=== PATIENT | female | born 1945 | race Caucasian/White ===

== ENCOUNTER → 2017-01-10 | Outpatient (CLI) | payer OTHER | LOC: RAD 01:21 | DX: Z12.31 Encounter for screening mammogram for malignant neoplasm of breast (principal); M85.89 Other specified disorders of bone density and structure, multiple sites; N91.2 Amenorrhea, unspecified; Z78.0 Asymptomatic menopausal state ==

== ENCOUNTER 2019-03-06 21:33 | Inpatient (IN) | payer OTHER ==
[~2019-03-06] VITALS: Ht 160 cm; Wt 64.4 kg
[2019-03-06 21:35] VITALS: BP 126/53
[2019-03-06] MEDS ORDERED: ZYPREXA 10 MG T10 MG PO (21:41)
[2019-03-06] MEDS ORDERED: THIORIDAZINE HC50 M2 PO (21:42)
[2019-03-06] MEDS ORDERED: LAMICTAL100 MG PO (21:42)
[2019-03-06] MEDS ORDERED: SYNTHROID88 MC1 PO (21:43)
[2019-03-06 22:29] LABS: HEMATOCRIT 27.2 % (37.0-47.0); HEMOGLOBIN 9.2 gm/dL (12.0-15.0); MCH 28.1 pg (26.0-34.0); MCHC 33.8 g/dL (28.0-37.0); MCV 83.3 fL (80.0-100.0); RBC 3.27 mil/uL (4.20-5.00); RDW 14.2 % (10.5-14.5); WBC 3.9 thou/uL (4.0-11.0)
[2019-03-06 22:35] LABS: CALCIUM 8.9 mg/dL (8.5-10.1); CREATININE 0.8 mg/dL (0.6-1.0); MAGNESIUM 1.6 mg/dL (1.8-2.4); POTASSIUM 4.3 mmol/L (3.5-5.1)
[2019-03-06 23:24] VITALS: BP 131/50
[2019-03-06 23:31] LABS: URINE BILIRUBIN NEGATIVE (Negative); URINE BLOOD NEGATIVE (Negative); URINE CLARITY CLEAR; URINE COLOR YELLOW; URINE GLUCOSE-RANDOM* NEGATIVE (Negative); URINE KETONES NEGATIVE (Negative); URINE LEUKOCYTES-REFLEX NEGATIVE (Negative); URINE NITRITE-REFLEX NEGATIVE (Negative); URINE PROTEIN (DIPSTICK) NEGATIVE (Negative); URINE SPECIFIC GRAVITY <= 1.005 (1.005-1.035); URINE UROBILINOGEN 0.2 E.U./dl (0.2-1.0)
[2019-03-07] VITALS (7 sets, daily range): BP systolic 94–131; BP diastolic 45–57
[2019-03-07 05:18] LABS: CALCIUM 8.6 mg/dL (8.5-10.1); CREATININE 0.8 mg/dL (0.6-1.0); POTASSIUM 4.1 mmol/L (3.5-5.1)
--- NOTE | 2019-03-07 06:14 | NUR ---
PT CAME FROM ER AROUND 0000 THIS SHIFT. PT IS ORIENTED TO PERSON PLACE AND SITUATION ONLY. PT HAS A FLAT AFFECT SOMETIMES, CAREGIVER/BROTHER WAS IN THE ROOM DURING PT'S ADMISSION AND HE IS HERE NOW. PT'S Na CAME UP THIS MORNING TO 120 FROM 116. PT HAD GOOD URINE OUTPUT THIS SHIFT. PT IS UP X1 TO THE BEDSIDE COMMODE. PT APPEARS STEADY. NO COMPLAINTS OF PAIN OR DISCOMFORT, WILL CONTINUE TO MONITOR PER POC.
--- NOTE | 2019-03-07 09:58 | NUR ---
RD consult received for unintentional wt loss about 10 lb however has regained most back. Hx bipolar, schizophrenia, developmental delay. Brother is caregiver. Visit this am, good appetite. Pt and brother provided detailed list of food preferences and aware of need for fluid restricted diet due to hyponatremia. Low nutrition risk
--- NOTE | 2019-03-07 10:44 | NUR ---
Case opened to follow for dc planning. Panel Monitor visited with the pt and her brother/dpoa Ranjit at bedside. The pt is able to answer basic questions. She lives with her brother and his Lynn. They are her caregivers and she has lived with them for 2years since the passing of their father. The pt is from [place]. A copy of the pt's medical dpoa is on the chart. Her brother Ranjit is the primary agent and contact and his the alternate. The pt has 5 steps with two landings to enter their home and no steps once inside. She does not use any DME but occasional sba when going out to appointments. Th pt's pcp is Dr. Lurdes Butcher. The pt has a complex mental health history with schizo/bipolar/OCD/and developmental delays. Pt admitted with low sodium and her brother notes she has had a couple of falls recently when up during the night to the bathroom. She has had hh in the recent past through [facility] but is currently going to outpt therapy at [facility]. She had a shoulder replacement a few months ago. Therapy evals ordered. They are hoping she can return home with outpt therapy but are open to any recommendations per the care team. Cm role introduced. A copy of the dpoa document was placed on the chart.
--- NOTE | 2019-03-07 18:01 | NUR ---
ASSESSMENT CHARTED. PT ALERT AND ORIENTED TO SELF AND SITUATION. PLEASANT AND COOPERATIVE WITH CARES. SEEN BY DR. PALACIO. NEW ORDERS NOTED. FAMILY UPDATED ON PT'S PROGRESS. WILL CONTINUE TO MONITOR.
[2019-03-08 04:02] VITALS: BP 103/47
--- NOTE | 2019-03-08 04:58 | NUR ---
ASSESSMENT DOCUMENTED.PT BEEN RESTING IN NO ACUTE DISTRESS.A/OX3.VSS.RA W/O RESP DISTRESS.NSR ON MONITOR.UP WITH SBA TO BR.PT DENIES ANY DISTRESS AT THIS TIME.WILL CONT TO MONITOR PER POC.
[2019-03-08 06:05] LABS: ALBUMIN 3.1 g/dL (3.4-5.0); CALCIUM 8.6 mg/dL (8.5-10.1); CREATININE 0.8 mg/dL (0.6-1.0); PHOSPHORUS 3.8 mg/dL (2.5-4.9); POTASSIUM 4.6 mmol/L (3.5-5.1)
[2019-03-08 07:15] VITALS: BP 105/70
--- NOTE | 2019-03-08 11:14 | NUR ---
ASSESSMENT CHARTED PT ALERT AND ORIENTED TO SELF AND THE SITUATION. DENIED HAVING PAIN OR DISCOMFORT. VSS. SEEN BY DR. ROSARIO. ORDERS GIVEN TO TRANSFER PT TO 440. REPORT CALLED IN TO [facility]. FAMILY NOTIFIED. WILL CONTINUE TO MONITOR.
[2019-03-08 11:30] VITALS: BP 101/48
--- NOTE | 2019-03-08 13:41 | NUR ---
Pt transfering to med surg bed on 4S today. Pt's brother here and aware. Pt is doing better. Psych recommendations noted. Sodium improved. Likely dc to home tomorrow with her brother. He will let her homemaker per mo medicaid know and he will continue taking her to outpt therapy. No cm interventions indicated.
[2019-03-08 16:05] VITALS: BP 118/47
--- NOTE | 2019-03-08 16:07 | NUR ---
FAXED REFERRAL TO [facility] RECEIVED CONFIRMATION AND LEFT MSG WITH INTAKE THAT PT POSS WILL NEED LYMPHEDEMA THERAPY WILL F/U WITH THEM IN THE MORNING.
--- NOTE | 2019-03-08 16:52 | NUR ---
PT RECIEVED FROM CCU TO 440 AT 1115 THIS AM. PT'S BROTHER AND NATURAL FABRICATOR AT THE BEDSIDE. PT CALM AND COOPERATIVE. DR. PALACIO IN AROUND 1500 TO SEE PT AND DISCUSSED PLAN OF CARE W/ PT AND BROTHER. PROBABLE DISCHARGE TOMORROW AND WILL F/U W/ HER PSYCHRIATRIST AT [facility].
[2019-03-08 20:00] VITALS: BP 101/45
--- NOTE | 2019-03-09 03:48 | NUR ---
ASSUMED CARE OF PT @1900 PT ASSESSED AT START OF SHIFT DENIES PAIN. UP WITH ASSISTX1 TO THE BATHROOM. ON A 1500ML FLUID RESTRICTION FOR 24HR. IV INTACT IN RT ARM. FALL PREC IN PLACE AND CALL LIGHT WITHIN REACH WILL CONT WITH POC TILL EOS.
[2019-03-09 05:31] LABS: ALBUMIN 3.2 g/dL (3.4-5.0); CALCIUM 8.5 mg/dL (8.5-10.1); CREATININE 0.8 mg/dL (0.6-1.0); PHOSPHORUS 3.5 mg/dL (2.5-4.9); POTASSIUM 4.4 mmol/L (3.5-5.1)
[2019-03-09 07:50] VITALS: BP 102/52
--- NOTE | 2019-03-09 12:20 | NUR ---
FAXED DR. PALACIO'S CONSULT AND PROG. NOTES TO [facility] OFFICE RECEIVED CONFIRMATION. DP TO FOLLOW.
--- NOTE | 2019-03-09 15:24 | NUR ---
CARE TEAM INDICATED THAT THEY ANTICPATED THAT PT WILL ABLE TO DC HOME TOMORROW WITH HER BROTHER WITH FOLLOW UP CARES AT [facility] THAT BROTHER IS CAPABLE TO REINITIATE, AND LIKELY OP THERAPY. SHOULD IT BE DETERMINED THAT PT NEEDS HOME HEALTH THEY WOULD LIKE TO USE [facility] PHONE: FAX:
--- NOTE | 2019-03-09 18:35 | NUR ---
ASSUMED CARE OF THE PT AT 0700. PT IS VERY ANXIOUS AND CRIES ALOT SAYING "I MISS MY MOM". CALLED DOCTOR AND PT HAS ANXIETY MEDICATION, SEE EMAR. PT HAD A BM TODAY. PT WAS UP AD DAVID IN THE ROOM WITH GAIT BELT ON. PT COMPLAINED THAT SHE DID NOT GET ANY SLEEP LAST NIGHT. FALL PRECAUTIONS IN PLACE, BED IN LOWEST POSITION AND CALL LIGHT IS WITHIN REACH. WILL CONTINUE TO MONITOR THE PT.
[2019-03-09 20:30] VITALS: BP 114/61
[2019-03-10 03:45] VITALS: BP 106/57
[2019-03-10 05:26] LABS: ALBUMIN 3.1 g/dL (3.4-5.0); CALCIUM 8.7 mg/dL (8.5-10.1); CREATININE 0.8 mg/dL (0.6-1.0); PHOSPHORUS 3.8 mg/dL (2.5-4.9); POTASSIUM 4.5 mmol/L (3.5-5.1); SGOT 12 U/L (15-37); SGPT 13 U/L (30-65)
--- NOTE | 2019-03-10 08:06 | NUR ---
PATIENT ALERT AND ORIENTED [place], PLACE AND SITUATION. ON 1500 FLUID RESTRICTION. PATIENT UP WITH ASSISTANCE. PATIENT SLEPT OFF AND ON DURING THE NIGHT. DENIES PAIN.
[2019-03-10 08:35] VITALS: BP 120/60
[2019-03-10] MEDS ORDERED: CHLORPROMAZINE25 M3 PO (10:22)
[2019-03-10] MEDS ORDERED: HOME MEDICATION PO (10:23)
[2019-03-10] MEDS ORDERED: MIRALAX17 GM PO (10:23)
[2019-03-10] MEDS ORDERED: SODIUM CHLORIDE1 GM PO (10:24)
[2019-03-10 11:35] VITALS: BP 120/60
--- NOTE | 2019-03-10 14:10 | NUR ---
LATES ENTRY: PATIENT DISCHARGED HOME WITH BROTHER. EDUCATED ON NEED TO LIMIT FLUIDS TO 1.5L/DAY. SHE WAS ALSO INSTRUCTED TO F/U WITH DR LERMA IN TWO WEEKS. PATIENT WILL CONT WITH NACL TO KEEP SODIUM STABLE.
--- NOTE | 2019-03-13 09:44 | HC ---
[facility] [place] [address] CONSULTATION Name: TAJGUILHERMEQUITA Room #: 440-P [facility] IN M.R.#: [id number] Admission: 03/06/19 Attend Phys: Jean Jacob Discharge: 03/10/19 Date of : 45 Report #: [id number] THIS REPORT FOR: //name// CC: Jean Varela REASON FOR CONSULTATION: Hyponatremia. REASON FOR PRESENTATION: Abnormal laboratory values, repeated falls. HISTORY OF PRESENT ILLNESS: This is obtained from the patient's brother. She has a developmental delay. She is not able to provide me with details of the history of present illness. She is a 73-year-old with history of schizophrenia, obsessive compulsive disorder, and bipolar disorder. She is also known to have hypothyroidism. She has had repeated falls since this past weekend. She also has not been stable and steady. No seizure activities. She visited with her primary care physician, who did some labs on her and then called her yesterday that her sodium was extremely low at 116. Brother reported to me that she had another event of hyponatremia 15 years ago and was attributed to polydipsia. No other neurological symptoms. PAST MEDICAL HISTORY: 1. Paranoid schizophrenia. 2. Bipolar disorder. 3. Hypothyroidism. 4. Developmental delay. 5. Shoulder surgery in the past. SOCIAL HISTORY: She lives with her brother. No drug or alcohol abuse. MEDICATIONS: 1. Levothyroxine. 2. Lamictal. 3. Zyprexa. 4. Thioridazine. REVIEW OF SYSTEMS: Per the brother. GENERAL: Significant for weakness and lethargy. CARDIOVASCULAR: No chest pain or palpitation. PULMONARY: No cough or hemoptysis. GASTROINTESTINAL: No nausea or vomiting. GENITOURINARY: No frequency. No urgency. MUSCULOSKELETAL: Occasional back pain. NEUROLOGICAL: As per the history of present illness. ALLERGIES: SEROQUEL and DEPAKOTE. [facility] [address] [place] [address] CONSULTATION Name: QUITA BROWN Precious Room #: 440-[facility] IN [facility].#: [id number] Admission: 03/06/19 Attend Phys: Jean Jacob Discharge: 03/10/19 Date of : 45 Report #: [id number] PHYSICAL EXAMINATION: GENERAL: She is alert. Pulse rate is 63 and blood pressure is 111/45. HEAD AND NECK: No jugular venous distention. CHEST: No crackles. CARDIOVASCULAR: No rub. ABDOMEN: Soft and nontender. LOWER EXTREMITIES: No edema. LABORATORY DATA: Reviewed. Sodium was 116 yesterday and is up to 120 today. Potassium is 4.1, BUN is 10, and creatinine is 0.8. UA with a very dilute urine with specific gravity less than 1.005. IMPRESSION AND PLAN: 1. Hyponatremia due to psychogenic polydipsia. 2. Continue with the fluid restriction for now, sodium is appropriately rising up. No neurological symptoms to justify the usage of 3% saline. 3. Defer the management of her psych medication to the hospitalist team, consult psychiatric, communicate with her psychiatrist regarding medications that might not induce SIADH like picture in this patient with hyponatremia. <ELECTRONICALLY SIGNED> By: Sadaf Singh MD 03/13/19 0944 [id number] Sadaf Singh MD /nt
== END 2019-03-10 13:38 | disposition home or self-care (01) | DRG 641 ==
LOC: ER 21:33 → 4S 23:07 → 2N 23:07 → EROBS 23:07 → 2N 03-07 00:05 → ENTRNSPT 03-08 11:02 → EDTRNSPTSTS 03-08 11:05 → 4S 03-08 11:12
PROVIDERS: Emergency Medicine Emergency Medical Services; Hospitalist; Nurse Practitioner Family; Psychiatry & Neurology Psychiatry; ADMIT Hospitalist
DX: E87.1 Hypo-osmolality and hyponatremia (principal); F20.0 Paranoid schizophrenia; T42.6X5A Adverse effect of other antiepileptic and sedative-hypnotic drugs, initial encounter; R63.1 Polydipsia; E03.9 Hypothyroidism, unspecified; D64.9 Anemia, unspecified; F31.9 Bipolar disorder, unspecified; Z96.619 Presence of unspecified artificial shoulder joint; F42.9 Obsessive-compulsive disorder, unspecified; G47.00 Insomnia, unspecified; Y92.89 Other specified places as the place of occurrence of the external cause; Z88.8 Allergy status to other drugs, medicaments and biological substances; Z79.899 Other long term (current) drug therapy
CPT/HCPCS: 10081; 10102

== ENCOUNTER 2019-04-06 08:07 | Inpatient (IN) | payer OTHER ==
[~2019-04-06] VITALS: Ht 160 cm; Wt 58.3 kg
[2019-04-06 08:07] VITALS: BP 141/60
[~2019-04-06 08:07] MED LIST: CHLORPROMAZINE25 M3 PO; HOME MEDICATION PO; LAMICTAL100 MG PO; MIRALAX17 GM PO; SODIUM CHLORIDE1 GM PO; SYNTHROID88 MC1 PO; THIORIDAZINE HC50 M2 PO; ZYPREXA 10 MG T10 MG PO
[2019-04-06] MEDS ORDERED: TRAZODONE 150150 M1 PO (08:44)
[2019-04-06] MEDS ORDERED: RISPERDAL2 MG PO (08:45)
[2019-04-06] MEDS ORDERED: B12INJ IM (08:46)
[2019-04-06 09:21] LABS: ABSOLUTE NEUTROPHILS 2.2 thou/uL (1.4-8.2); BASOPHILS 0.2 % (0.0-2.0); HEMATOCRIT 29.6 % (37.0-47.0); HEMOGLOBIN 9.8 gm/dL (12.0-15.0); LYMPHOCYTES 29.8 % (24.0-44.0); MCH 28.1 pg (26.0-34.0); MCHC 33.2 g/dL (28.0-37.0); MCV 84.5 fL (80.0-100.0); PLATELET COUNT 398 thou/uL (150-400); RDW 14.3 % (10.5-14.5); WBC 3.5 thou/uL (4.0-11.0)
[2019-04-06 09:24] LABS: CREATININE 0.9 mg/dL (0.6-1.0); POTASSIUM 3.4 mmol/L (3.5-5.1)
[2019-04-06 09:30] LABS: ALBUMIN 3.7 g/dL (3.4-5.0); TOTAL PROTEIN 7.1 g/dL (6.4-8.2)
[2019-04-06 12:31] LABS: DIRECT BILIRUBIN 0.2 mg/dL (<0.1-0.2)
[2019-04-06 13:42] VITALS: BP 130/67
[2019-04-06 14:10] VITALS: BP 125/69
[2019-04-06 15:18] VITALS: BP 1446/60
--- NOTE | 2019-04-06 15:58 | NUR ---
pt. arrived in w/c accompanied by brother and er transporter. PT. IS PLEASANT AND COOPERATIVE WITH QUESTIONS. BROTHER ANSWERED MOST QUESTIONS. SHE HAS A PAST HISTORY OF SXHIZOEFFECTIVE DISORDER, DEPRESSION, PARANOIA, AND OCD. . HER PMHX ENCLUDE APPENDECTOMY WHICH RESULTED IN SHORTENED INTESTINE WHICH RESULTED IN CHRONIC DIARRHEA (THIS OCCURRED IN THE 1959'S), SHE HAD A RIGHT TOTAL HIP REPLACEMENT ABOUT 6 YEARS AGO, A RT. TOTAL SHOULDER REPLACEMENT ABOUT 4 MONTHS AGO, AND BROTHER REPORTED SHE NEEDS TO HAVE HER LEFT SHOULDER REPLACED NEXT YEAR. SHE IS ON A BLAND DIET DUE TO THE BOWEL PROBLEMS SHE HAS. HER BROTHER, GABRIEL, IS HER DPOA. SHE LIVES WITH HER BROTHER AND HIS . HE STATES SHE STARTED HAVEING PROBLEMS BECAUSE OF A DISCONTINUATION IN NORMAL PSYCH MEDICATIONS DUE TO SODIUM IMBALANCE. SHE IS LABILE AND SHE RANTS WHEN UPSET. PT. DOES NOT HAVE A HISTORY OF SI, ETOH ABUSE, DRUG ABUSE. SHE DOES HAVE A FULL SET OF DENTURES (SHE IS WEARING THEM CURRENTLY), READING GLASSES BUT NO HEARING AIDES. REVIEWED HER MEDICATIONS AND ENTERED THEM IN THE COMPUTER. REPORTS SHE IS NOT ABLE TO SHOWER HERSELF OR DO ADL'S HERSELF.
[2019-04-06 20:12] VITALS: BP 107/62
--- NOTE | 2019-04-07 03:25 | NUR ---
ASSUMED CARE OF PT AT 1900HRS. PT IS AD DAVID WITH A STEADY GAIT. PT WAS PLEASANT AND CHATTY AT THE TIME OF ASSESSMENT. HOWEVER, THE NIGHT PROGRESSED, PT WOKE UP AND CAME TO THE HALLWAY CRYING. SIGNS OF PARANOIA WAS EVIDENT. PT WAS EASILY REASSURED AND REDIRECTED TO BED. PT WAS ABLE TO SLEEP FOR A FEW HOURS THIS SHIFT. VSS AND NO S/S OF ACUTE DISTRESS. WILL CONTINUE TO MONITOR.
[2019-04-07 04:49] LABS: CALCIUM 8.4 mg/dL (8.5-10.1); CREATININE 0.7 mg/dL (0.6-1.0); POTASSIUM 3.5 mmol/L (3.5-5.1)
[2019-04-07 07:50] VITALS: BP 133/56
--- NOTE | 2019-04-07 15:16 | NUR ---
Has been up in dayroom most of shift, she is very labile in mood, mary beth quickly and then will laugh right after, she deines SI/HI and AVH, she eats fair, have encouraged fluids and requested her to let us know if she has to urinate as we need a UA, she said she would let us know. She takes medications without issues, family was present for visitation and questions were answered. She is receiving FS due to hypoglycemia and to monitor for further acion per Dr. Chang. Continue to monitor for safety and behaviors.
[2019-04-07 20:00] VITALS: BP 120/50
--- NOTE | 2019-04-08 05:17 | NUR ---
1909-Report received from day shift nurse and care assumed. She talked with tangential thinking and disorganized thinking. She was socialable with her roomate, staying in her room during the evening. She was talkative, med. compliant and blood sugar = 113. She rested for a whilr then at 0045 she was in her room crying tears, talking loudly. She was talked with in the day room and she was looking for her brother she said, she was comforted and talked with staff also. She had a sad affect, but not crying, and talked further and was laughing soon. She had insomnia and was anxious still and the Dr. was called and ordered Ativan 1 mg. po and Haldol 5 mg. po x 1 now, which was given at 0140. It was effective as she was became more rested and went to her room. She slept lightly the remainder of the nite.
[2019-04-08 07:46] VITALS: BP 135/64
[2019-04-08 08:40] VITALS: BP 135/64
--- NOTE | 2019-04-08 08:40 | NUR ---
PT SITTING AT DINING ROOM TABLE. PT IN W/C WITH YELLOW SHIRT. PT STATED SHE FELT TIRED THIS AM. PT GOT 4 HRS OF SLEEP LAST NIGHT. PT SUPERVISOR DRYING AND WINDING EQUAL BILATERAL. PT ABLE TO FEED SELF. PT SOFT SPOKEN AND SLOW.
[2019-04-08 19:53] VITALS: BP 156/78
[2019-04-08 19:54] LABS: URINE BILIRUBIN NEGATIVE (Negative); URINE BLOOD NEGATIVE (Negative); URINE CLARITY CLEAR; URINE COLOR YELLOW; URINE GLUCOSE-RANDOM* NEGATIVE (Negative); URINE KETONES 1+ (Negative); URINE LEUKOCYTES-REFLEX NEGATIVE (Negative); URINE NITRITE-REFLEX NEGATIVE (Negative); URINE PROTEIN (DIPSTICK) NEGATIVE (Negative); URINE SPECIFIC GRAVITY 1.025 (1.005-1.035); URINE UROBILINOGEN 0.2 E.U./dl (0.2-1.0)
[2019-04-09 05:28] LABS: CALCIUM 8.7 mg/dL (8.5-10.1); CREATININE 0.7 mg/dL (0.6-1.0); POTASSIUM 3.9 mmol/L (3.5-5.1)
--- NOTE | 2019-04-09 05:51 | NUR ---
1909-Report received from day shift nurse. She was medication compliant, talkative with no c.o. voiced at [employer]. She was incontinent/continent of bowel in the nite, loose/yellowish/odorous with undigested food small amount. This upset her, she began crying "bowel movement" she said. Then she began saying the name of her brothers cat repeatedly while crying, which lasted for several minutes which was a loud calling out the cats name as staff tried consoling her crying. She began cursing loudly when she was assisted to the day room to rest/talk/sit. This was directed towards unseen others with the cat's name/sobbing. She said "I love you" to staff as well during this time. This crying, hallucinations continued, no further bowel movements and no c.o. pain also. was called and ordered Ativan 1 mg. po and it was given at 0145 for anxiety/insomnia and it was effective somewhat she returned to sleeping in her bed. She is smiling and saying I love you this morning. total hours of sleep = 3.8.
[2019-04-09 08:03] VITALS: BP 137/65
--- NOTE | 2019-04-09 13:04 | NUR ---
Nutrition: Assessed due to consult for "on bland diet due to GI issues." Met w/ pt and 2 family members before lunch. Family denies any major nutrition or weight loss concerns. Family states "diet/food here has been perfect for her." They report a surgery a long time ago "messed up her GI system." Avoids oil, no ice in beverages. Likes bananas, cranberry juice, cream of wheat, waffles, pancakes, peaches, applesauce, cottage cheese, mashed potatoes w/ no butter/gravy. At recorded weight near 129#, pt at a very healthy wt. BMI 22.8 kg/m2. It appears pt could have possibly lost 13# as documented wt during Nov admit was 142#, but family didn't mention any wt changes. Will notify kitchen of food preferences and meal add-ons. Otherwise, low nutrition risk.
--- NOTE | 2019-04-09 13:51 | NUR ---
Alert and cooperative/compliant with care. Oriented to person and place but not time. Ambulates without difficulty. Denies SI/HI. Talks about family members and then random topics. Breath sounds clear t/o, bilaterally equal. Reg HR auscultated. Color pale pink with brisk capillary refill and palpable peripheral pulses. Active bowel sounds over soft, flat abdomen. Brief dry.
--- NOTE | 2019-04-09 14:50 | NUR ---
KELLIE met with pt's brother and SO t discuss medicaitons and d/c plans. It was established through a meds review and medication HX that Dr Chang will make meds changes and remove wheelchair. Kellie also asked for the PCP and Caregivers[facility] and numbers at [facility], brother will provide that through email. Pt receives 08/11 care in their home and will d/c back there later this week , if she responds favorably to the interventions.
--- NOTE | 2019-04-09 15:54 | EKG ---
[address] [address] ELECTROCARDIOGRAM REPORT Name: QUITA BROWN Room #: [facility]-A ADM IN ..#: [id number] Admission: 04/06/19 Attend Phys: Elmer Chang DO Discharge: Date of : 45 Report #: [id number] THIS REPORT FOR: //name// [facility] Test Date: 2019-04-06 Test Time: 15:01:22 Pat Name: QUITA BROWN Department: Room: [facility] Gender: F Fish Packer: GABY : 1945 Requested By: Elmer Chang Order Number: [id number] MD: Daniel Samayoa Measurements Intervals [place] Rate: 72 P: 65 MA: 181 QRS: 33 QRSD: 87 T: 35 QT: 390 QTc: 427 Interpretive Statements Sinus rhythm No previous ECG available for comparison Electronically Signed On 04-09-2019 15:53:43 TRADE CLERK by Daniel Samayoa [email or web address] <ELECTRONICALLY SIGNED> By: Daniel Samayoa MD 04/09/19 1553 1501 1501 MD NIDIA Mchugh
[2019-04-09 20:26] VITALS: BP 156/80
--- NOTE | 2019-04-10 01:58 | NUR ---
Assessments completed. pt a&ox3. pt had an xlg loose BM which smelled like c.diff. stool collected and sent to lab for testing. pt kept talking about his tall brother over and over again stating he is over 6ft tall. v/s stable. no s/s of distress. pt has been sleeping with no complaints. will cont to monitor
[2019-04-10 11:50] VITALS: BP 137/61; BP 137/81
--- NOTE | 2019-04-10 12:12 | NUR ---
0700 REPORT RECEIVED FROM OVERNIGHT SHIFT, I HELPED PATIENT DO HYGEINE THIS AM. PATIENT DID NOT EAT BUT ABOUT 25% OF BREAKFAST, PATIENT WAS VERY TEARFUL FOR SEVERAL HOURS. I ASKED DR GREGORY IF WE COULD GIVE PATIENT SOMETHING, HE TOLD TO WAIT TO SEE IF HALDOL SHE TOOK AT 0900 WOULD KICK IN. PATIENT DID STOP CRYING, HAD VISIT FROM SON AND [id number]. PATIENT'S SON TOLD ME HIS MOM WAS TELLING HIM THAT SHE WAS SEING THINGS AND DID NOT FEEL LIKE HERSELF. NAOMIE THE CHARGE NURSE HEARD FAMILY ASKING PATIENT QUESTIONS ABOUT SEEING AND HEARING THINGS. PATIENT DID NOT REPORT THIS THINGS TO ME. SON ASKED IF WE HAD A STOCK PILE OF MELLIRAL WHICH HE SAID HELPED HIS MOTHER IN THE PAST. I LOOKED UP THE MEDICATION AND IT IS NOT MANUFACTURED ANYMORE. PATIENT TALKED WITH DR GREGORY AND THE DR ORDERED BMP,CBC FOR PATIENT TO SEE IF LABS ARE OKAY. A C-DIFF IS PENDING DUE TO LOOSE STOOLS AND FOUL SMELLING, TEST IS PENDING. PATIENT THREW UP AT LUNCH TIME AND DID NOT EAT LUNCH, WE LET PATIENT LIE DOWN TO REST. WE WILL CONTIUNE TO MONITOR PATIENT FOR SAFETY AND BEHAVIOR CHANGES. TOLD SON SHE WAS SEEING THINGS AND SHE DID NOT FEEL LIKE HERSELF. SHE FELT NAUSOUS SO WE GAVE PATIENT CRACKERS AND VARINDER JANAE. PATIENT'S SON WANTED TO KNOW IF WE COULD
[2019-04-10 12:39] LABS: CALCIUM 8.7 mg/dL (8.5-10.1); CREATININE 0.7 mg/dL (0.6-1.0); POTASSIUM 3.9 mmol/L (3.5-5.1)
[2019-04-10] MEDS ORDERED: HALOPERIDOL 5 MG5 MG PO (13:07)
[2019-04-10 16:06] VITALS: BP 112/54
--- NOTE | 2019-04-11 09:33 | H ---
[facility] [place] [address] HISTORY AND PHYSICAL Name: QUITA BROWN Room #: 361-P [facility] IN M.R.#: [id number] Admission: 04/06/19 Attend Phys: Elmer Chang DO Discharge: 04/10/19 Date of : 45 Report #: [id number] THIS REPORT FOR: //name// CC: Elmer Chang Lurdes Varela DATE OF SERVICE: 04/06/2019 INPATIENT PSYCHIATRIC EVALUATION ATTENDING PHYSICIAN: Elmer Chang DO. MFT: Jean Jacob MD REASON FOR ADMISSION: Insomnia, shaun, delusional and disorganized thinking. HISTORY OF PRESENT ILLNESS: This is a 73-year-old female well known to the Hospitalist Service, but not to oh, [facility]. She was most recently admitted around 03/06/2019, so a month ago. At that time, she was on Dr. Jacob's service and had an electrolyte imbalance. The patient at present had been brought to [facility]. She had a fall last night, fell on her right side. Denies head injury. Her brother contacted PCP, who recommended she be seen for repeat labs. As stated, the patient was admitted for hyponatremia about a month ago. Thorazine was discontinued at that time. The patient currently takes levothyroxine, risperidone, trazodone daily. Labs drawn on 03/22/2019, had normal sodium, but low hemoglobin. The patient has a history of schizoaffective disorder, Alzheimer's disease. Her brother does not believe her new medication regimen is effective. The patient has significant mood swings 2 nights ago. Her brother contacted her psychiatrist, who rediscovered and recommended to increase her trazodone dosage. Trazodone was increased both yesterday and the day before. It should be noted brother reported to me she slept 4 hours last night with him sleeping on the floor because of her fall risk. PAST SURGICAL HISTORY: Includes right shoulder replacement 4 months ago and hip replacement 5 years ago, shoulder replacement 10/2018. Apparently, the patient was sent from Dr. Varela's office for sodium level to be checked. PAST MEDICAL HISTORY: Hypothyroidism, chronic diarrhea. 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 CURRENT HOME MEDICATIONS: Lamotrigine 200 mg p.o. at bedtime, levothyroxine 88 mcg p.o. daily, trazodone 150 mg p.o. at bedtime, risperidone [address] [place] [address] HISTORY AND PHYSICAL Name: TAJGUILHERMEQUITA Room #: 361-P [facility] IN M.R.#: [id number] Admission: 04/06/19 Attend Phys: Elmer Chang DO Discharge: 04/10/19 Date of : 45 Report #: [id number] vitamin B12 at 1000 mcg IM weekly. ALLERGIES: Noted to be DEPAKOTE, GI issues. SEROQUEL GI issues. SOCIAL HISTORY: Denied alcohol use history, currently nonsmoker. REVIEW OF SYSTEMS: CONSTITUTIONAL: Negative for chills and fever. HEENT: Negative for ear pain and hearing loss. RESPIRATORY: Negative for cough. CARDIOVASCULAR: Negative for chest pain. GASTROINTESTINAL: Negative for abdominal pain, nausea and vomiting. GENITOURINARY: Negative for dysuria. MUSCULOSKELETAL: Negative for back pain, myalgias, neck pain. SKIN: Negative for rash. NEUROLOGICAL: Negative for headaches. VITAL SIGNS: Today, O2 sat 100%, BP 141/60, temperature 36.3, pulse 85, respirations 20, weight 63.5 kilos. LABORATORY DATA: From the ER, sodium low at 124, potassium 3.4, chloride 92, bicarbonate 24, anion gap 8, BUN 11, creatinine 0.9, estimated GFR 61, glucose 92, calcium 9.0, total bilirubin 1.0, direct bilirubin 0.2, AST 20, ALT 23, alkaline phosphatase 157, total protein 7.1, albumin 3.71. Hematology: White count 3.5, H and H 10.8 and 29.6, platelet count 398. IMAGING: No head imaging available. Abdominal x-ray last February. Physical exam, abnormal gait, off balance. MENTAL STATUS EXAMINATION: This is a well-developed, disheveled female appearing older than stated age. Attention limited. Concentration limited. Speech slowed. Thought process linear and limited. Thought content, poverty of thought. No psychomotor retardation. No psychomotor agitation. Denied SI, HI. Denied hopelessness, helplessness. Memory not formally tested, but suspect to be impaired. Insight limited. Judgment impaired. Fund of knowledge well below average. FORMULATION: A 73-year-old female living with brother, brought by her brother due to increased confusion and disorganization. DIAGNOSES: At this time, schizoaffective disorder, currently decompensated. PLAN: Evaluate, stabilize, obtain collateral. Regarding medications, continue levothyroxine 88 mcg p.o. daily, trazodone 50 mg p.o. at bedtime, lamotrigine 200 mg p.o. at bedtime, start Haldol 2 mg p.o. b.i.d. at 9:00 a.m. and 9:00 p.m. Continue house PRNs. [facility] [address] [place] [address] HISTORY AND PHYSICAL Name: QUITA BROWN Room #: 361-P [facility] IN M.R.#: [id number] Admission: 04/06/19 Attend Phys: Elmer Chang DO Discharge: 04/10/19 Date of : 45 Report #: [id number] ESTIMATED LENGTH OF STAY: 10-14 days. STRENGTHS: Insured, supportive family. WEAKNESSES: Advancing age, longstanding mental illness. <ELECTRONICALLY SIGNED> By: Elmer Chang DO 04/11/19 0933 1559 1647 Elmer Chang DO /nt
--- NOTE | 2019-04-13 14:27 | D ---
[facility] [place] [address] DISCHARGE SUMMARY Name: QUITA BROWN Room #: 361-P [facility] IN M.R.#: [id number] Admission: 04/06/19 Attend Phys: Elmer Chang DO Discharge: 04/10/19 Date of : 45 Report #: [id number] THIS REPORT FOR: //name// CC: Elmer Chang Lurdes Varela DATE OF SERVICE: 04/10/2019 INPATIENT PSYCHIATRIC DISCHARGE SUMMARY ATTENDING PHYSICIAN: Elmer Chang DO. TEACHER EMOTIONALLY IMPAIRED AT THE TIME OF DISCHARGE: Jean Jacob MD DISCHARGE DIAGNOSES: Delirium secondary to general medical condition, namely critically low hyponatremia and Clostridium difficile infection. 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 Additionally, in much to my surprise, the patient had a positive Clostridium difficile stool result just before her sodium level returned as well as presumptive Clostridium difficile infection. The patient was emergently transferred to the med tele floor at [facility]. DIET: Per hospitalist service. DISCHARGE MEDICATIONS: Include Haldol 5 mg p.o. twice per day for psychosis, lamotrigine 200 mg p.o. at bedtime for mood stabilization, levothyroxine 88 mcg p.o. daily, vitamin B12 at 1000 mcg IM weekly. Additional discharge planning will be per the medical floor. REASON FOR ADMISSION: Back on 04/06/2019 is as follows. Apparently, the patient had significant mood swings, lives with her brother and [id number]. HOSPITAL COURSE: The patient was admitted to Geriatric Psychiatry Unit. The patient's sodium level initially improved from 124 to 127 and went down to 122. Trazodone was discontinued after that and family visited the patient, was noticeably more confused to them, so I did a stat BMP on day of discharge, which resulted in the 115 sodium level. Also apparently, the night hospitalist nurse practitioner ordered to the Clostridium difficile by PCR, not exactly sure why this patient has well established chronic diarrhea; however, it resulted in a positive value of likely necessitate treatment given in the hospital setting. CONDITION AT DISCHARGE: Medically unstable. [facility] [address] [place] [address] DISCHARGE SUMMARY Name: QUITA BROWN Precious Room #: 361-P [facility] IN [facility].#: [id number] Admission: 04/06/19 Attend Phys: Elmer Chang, Discharge: 04/10/19 Date of : 45 Report #: [id number] Other laboratories, of note, white count on admission 3.5, H and H 9.8 and 29.6. Electrolyte issues have already been reviewed. Urinalysis showed 1+ ketones. Urine osmolality was performed on 04/08/2019 and as stated on 04/10/2019, positive C. diff resulted from sample obtained on 04/09/2019. PHYSICAL EXAMINATION: VITAL SIGNS: At time of discharge, temperature 36.3, pulse 66, respirations 18, BP 137/61, O2 sat 96%. GENERAL: A well-developed, disheveled, seated in wheelchair. MENTAL STATUS EXAMINATION: This is a well-developed, disheveled female appearing at least stated age. Attention and concentration, both impaired. Speech variably spontaneous. Mood and affect congruent, constricted, labile, crying appropriately at times. Some psychomotor agitation. No psychomotor retardation. Actually really unable to test for SI or HI due to her level of confusion. Memory not formally tested. Insight impaired. Judgment impaired. Fund of knowledge well below average. PROGNOSIS: For this patient is guarded. Given age and comorbidities, I will be happy to consult on the patient on the medical floor. We will have to see how she improves. At this time, I am not so sure it would be beneficial for her to be readmitted to Psychiatry given her progress here and family's wishes. <ELECTRONICALLY SIGNED> By: Elmer Chang DO 04/13/19 1427 [id number] Elmer Chang DO /nt
== END 2019-04-10 16:26 | disposition short-term general hospital (02) | DRG 885 ==
LOC: ER 08:07 → SBH 12:34 → EROBS 12:34 → SBH 14:10 → 3W 04-10 14:22
PROVIDERS: Emergency Medicine; Hospitalist; ADMIT Psychiatry & Neurology Psychiatry
DX: F25.9 Schizoaffective disorder, unspecified (principal); E87.1 Hypo-osmolality and hyponatremia; F01.50 Vascular dementia, unspecified severity, without behavioral disturbance, psychotic disturbance, mood disturbance, and anxiety; F31.9 Bipolar disorder, unspecified; E03.9 Hypothyroidism, unspecified; R41.0 Disorientation, unspecified; Z96.641 Presence of right artificial hip joint; Z96.611 Presence of right artificial shoulder joint; Z88.8 Allergy status to other drugs, medicaments and biological substances; Z79.899 Other long term (current) drug therapy
CPT/HCPCS: 10880

== ENCOUNTER 2019-04-10 14:15 | Inpatient (IN) | payer OTHER ==
[~2019-04-10 14:15] MED LIST changes: +B12INJ IM; +HALOPERIDOL 5 MG5 MG PO; +RISPERDAL2 MG PO; +TRAZODONE 150150 M1 PO
[2019-04-10 16:01] VITALS: BP 112/54
[2019-04-10 19:28] VITALS: BP 132/61
[2019-04-11 02:40] LABS: URINE BILIRUBIN NEGATIVE (Negative); URINE BLOOD NEGATIVE (Negative); URINE CLARITY CLEAR; URINE COLOR YELLOW; URINE GLUCOSE-RANDOM* NEGATIVE (Negative); URINE KETONES 1+ (Negative); URINE LEUKOCYTES-REFLEX NEGATIVE (Negative); URINE NITRITE-REFLEX NEGATIVE (Negative); URINE PROTEIN (DIPSTICK) NEGATIVE (Negative); URINE UROBILINOGEN 0.2 E.U./dl (0.2-1.0)
[2019-04-11 03:32] VITALS: BP 140/64
[2019-04-11 06:26] LABS: ABSOLUTE NEUTROPHILS 3.5 thou/uL (1.4-8.2); BASOPHILS 0.1 % (0.0-2.0); EOSINOPHILS 0.1 % (0.0-3.0); HEMATOCRIT 27.4 % (37.0-47.0); HEMOGLOBIN 9.3 gm/dL (12.0-15.0); LYMPHOCYTES 18.5 % (24.0-44.0); MCH 28.1 pg (26.0-34.0); MCV 82.8 fL (80.0-100.0); MONOCYTES 5.9 % (1.0-8.0); PLATELET COUNT 384 thou/uL (150-400); POLYS 75.4 % (36.0-66.0); RBC 3.31 mil/uL (4.20-5.00); RDW 13.7 % (10.5-14.5); WBC 4.6 thou/uL (4.0-11.0)
[2019-04-11 06:36] LABS: % SATURATION 21 % (20-39); IRON 54 ug/dL (50-170); TIBC 253 ug/dL (250-450)
[2019-04-11 06:41] LABS: ALBUMIN 3.2 g/dL (3.4-5.0); CREATININE 0.5 mg/dL (0.6-1.0); MAGNESIUM 1.2 mg/dL (1.8-2.4); PHOSPHORUS 2.9 mg/dL (2.5-4.9); POTASSIUM 3.2 mmol/L (3.5-5.1)
[2019-04-11 07:04] LABS: FOLIC ACID 19.5 ng/mL (8.6-58.9)
[2019-04-11 08:21] VITALS: BP 130/70
[2019-04-11 11:19] VITALS: BP 125/66
[2019-04-11 15:28] VITALS: BP 106/50
[2019-04-11 19:52] VITALS: BP 121/70
[2019-04-12 01:30] VITALS: BP 119/59
[2019-04-12 04:44] VITALS: BP 132/63
[2019-04-12 05:52] LABS: CALCIUM 8.3 mg/dL (8.5-10.1); CREATININE 0.6 mg/dL (0.6-1.0)
[2019-04-12 05:59] LABS: POTASSIUM 2.8 mmol/L (3.5-5.1)
[2019-04-12 07:52] VITALS: BP 141/79
[2019-04-12 11:33] VITALS: BP 143/78
[2019-04-12 15:11] LABS: MAGNESIUM 1.2 mg/dL (1.8-2.4); POTASSIUM 3.3 mmol/L (3.5-5.1)
[2019-04-12 16:05] VITALS: BP 127/65
[2019-04-12 19:41] VITALS: BP 124/63
[2019-04-13 04:45] VITALS: BP 118/50
[2019-04-13 07:38] LABS: ALBUMIN 3.1 g/dL (3.4-5.0); CALCIUM 8.6 mg/dL (8.5-10.1); CREATININE 0.6 mg/dL (0.6-1.0); MAGNESIUM 1.8 mg/dL (1.8-2.4); POTASSIUM 3.3 mmol/L (3.5-5.1); TOTAL BILIRUBIN 0.3 mg/dL (<0.1-1.0); TOTAL PROTEIN 5.5 g/dL (6.4-8.2)
[2019-04-13 07:45] VITALS: BP 109/60
[2019-04-13 12:20] VITALS: BP 124/61
[2019-04-13 15:30] VITALS: BP 109/59
[2019-04-13 19:40] VITALS: BP 107/60
[2019-04-14 04:10] VITALS: BP 103/58
[2019-04-14 04:11] LABS: CALCIUM 8.2 mg/dL (8.5-10.1); CREATININE 0.6 mg/dL (0.6-1.0)
[2019-04-14 04:13] LABS: POTASSIUM 2.7 mmol/L (3.5-5.1)
[2019-04-14 07:45] VITALS: BP 124/55
[2019-04-14 11:05] VITALS: BP 112/49
[2019-04-14 15:20] VITALS: BP 128/55
[2019-04-14 20:02] LABS: MAGNESIUM 2.6 mg/dL (1.8-2.4); POTASSIUM 3.7 mmol/L (3.5-5.1)
[2019-04-14 20:17] VITALS: BP 92/50
[2019-04-15 03:07] VITALS: BP 114/61
[2019-04-15 06:43] VITALS: BP 124/65
[2019-04-15 06:48] LABS: ALBUMIN 2.8 g/dL (3.4-5.0); CALCIUM 8.5 mg/dL (8.5-10.1); CREATININE 0.6 mg/dL (0.6-1.0); MAGNESIUM 1.9 mg/dL (1.8-2.4); POTASSIUM 3.9 mmol/L (3.5-5.1); TOTAL BILIRUBIN 0.2 mg/dL (<0.1-1.0); TOTAL PROTEIN 5.7 g/dL (6.4-8.2)
[2019-04-15 11:08] VITALS: BP 102/59
[2019-04-15 16:01] VITALS: BP 102/66
[2019-04-15 20:15] VITALS: BP 107/67
[2019-04-16 04:25] VITALS: BP 103/59
[2019-04-16 07:01] LABS: CALCIUM 8.9 mg/dL (8.5-10.1); CREATININE 0.6 mg/dL (0.6-1.0); POTASSIUM 3.5 mmol/L (3.5-5.1)
[2019-04-16 08:17] VITALS: BP 114/61
[2019-04-16 12:07] VITALS: BP 116/56
--- NOTE | 2019-04-16 12:51 | HC ---
[facility] [place] [address] CONSULTATION Name: QUITA BROWN Precious Room #: 361-P [facility] IN .R.#: [id number] Admission: 04/10/19 Attend Phys: Jean Jacob Discharge: Date of : 45 Report #: [id number] THIS REPORT FOR: //name// CC: Jean Varela DATE OF SERVICE: 04/15/2019 ENDOCRINE CONSULTATION NOTE CONSULTING PHYSICIAN: Jean Jacob M.D. REASON FOR CONSULTATION: Hyponatremia, hypothyroidism. HISTORY OF PRESENT ILLNESS: This is a 73-year-old female patient whose medical background is significant for paranoid schizophrenia, OCD, bipolar disorder as well as hypothyroidism. The patient presented initially to the Emergency Department for the evaluation of abnormal labs and then was later at the Psych Unit. Upon changes of altered mentation, the patient was investigated and found to have a sodium of 115. During my interview with the patient, she acknowledged that she has had hypothyroidism for many years and denied any withholding of levothyroxine for extended periods of time. When asked about whether or not hyponatremia had occurred in the past, she answered yes, but could not give more details on that. The patient notes that she was occasionally dizzy, lightheaded, but denies syncope, loss of consciousness. She believes that she has been weaker and more fatigued. She has occasional nausea, but denies vomiting. There have not been significant changes of weight. Her appetite has been poor. Mood depressed. It is worth noting that the patient is maintained on Lamictal as well as haloperidol. REVIEW OF SYSTEMS: CONSTITUTIONAL: Weakness, tiredness. No fever or chills or changes in body weight. HEENT: Negative for sinus pain, ear drainage. PULMONARY: Occasional shortness of breath, cough, but not hemoptysis. CARDIAC: Negative for chest pain, syncope or presyncope, palpitations. GASTROINTESTINAL: Occasional nausea, abdominal discomfort, but no vomiting or major changes in bowel movement frequency. PSYCH: Depressed mood. No active hallucinations as per the patient. SKIN: Negative for rash, ulceration or itching or other major abnormalities. NEUROLOGY: Negative for loss of consciousness, seizure activity. Noted for progressive generalized weakness. Otherwise, review of systems noncontributory unless mentioned in the HPI. [address] [address] CONSULTATION Name: QUITA BROWN Precious Room #: 361[facility] IN .R.#: [id number] Admission: 04/10/19 Attend Phys: Jean Jacob Discharge: Date of : 45 Report #: [id number] PAST MEDICAL HISTORY: 1. Hypothyroidism. 2. Bipolar disorder. 3. Paranoid schizophrenia. 4. OCD. OUTPATIENT MEDICATIONS: Include Lamictal 200 mg at bedtime, levothyroxine 88 mcg daily, vitamin B12 1000 mcg weekly. PAST SURGICAL HISTORY: Noted for appendectomy and shoulder surgery. ALLERGIES: The patient is allergic to DEPAKOTE and SEROQUEL. SOCIAL HISTORY: The patient denies active use of tobacco, alcohol or illicit drugs. PHYSICAL EXAMINATION: GENERAL: female patient who is not in apparent distress, sitting upright in her bed. VITAL SIGNS: Blood pressure is 102/59 mmHg, heart rate is 83 beats per minute, respirations 20 per minute, temperature is 36.9 degrees. CONSTITUTIONAL: The patient is sitting upright in her bed, appears comfortable, not in apparent distress. HEENT: Anicteric sclerae. Intact extraocular motions. NECK: Supple, without JVD, carotid bruits or lymphadenopathy. I do not appreciate thyromegaly. CHEST: Noted for moderate entry bilaterally with scattered rales. HEART: Regular rate and rhythm without murmurs or gallops. ABDOMEN: Soft and lax. No guarding. No organomegaly. The patient has active bowel sounds. EXTREMITIES: Lower extremity exam is negative for ankle edema, skin breaks, ulcerations or other major abnormalities. NEUROLOGIC: Awake, alert, has an overall nonfocal exam. PSYCHIATRIC: Awake, alert and interactive, answers my questions mostly appropriately, but occasionally making statements that are detached from the context. Flat mood and affect. LABORATORY DATA: Blood glucose values have remained consistently under 100 mg/dL. Sodium started out at 115 on 04/10 and then progressively valerie to 117 then 120, 121, 126, 130. Interestingly, the patient has a baseline as low as 116 in 02/2019, potassium 3.9 and having reviewed her potassium readings for over 40 days, there have been occasions of hypokalemia, but mostly it has been within normal limits. Chloride 98, CO2 26, anion gap 6, BUN 10, creatinine 0.6, serum osmolarity 241, AST 17, total bilirubin 0.2, calcium 8.5, phosphorus 2.9, magnesium 1.9, alkaline phosphatase 119, ALT 17, total protein 5.7, albumin 2.8, [facility] [address] [place] [address] CONSULTATION Name: QUITA BROWN Room #: 361-P [facility] IN M.R.#: [id number] Admission: 04/10/19 Attend Phys: Jean Jacob Discharge: Date of : 45 Report #: [id number] EGFR 98. Ammonia 12, free T4 on 03/06 was 1.3. White blood count 4.6, hemoglobin 9.3, hematocrit 27.4, platelets 384. Urine osmolarity on 04/08 was 704. Urine sodium was 30. ASSESSMENT AND PLAN: 1. Hyponatremia. This is severe and has been somewhat intractable for over a month. The combination of chronic protracted hyponatremia, low serum osmolarity, significantly elevated urine osmolarity, and lack of excessive urine sodium excretion all points out to the notion of syndrome of inappropriate antidiuretic hormone secretion as being the primary etiology for her hyponatremia. Moreover, the patient has done rather well with fluid restriction over the past few days as her sodium progressively valerie to 130, which further supports the notion of syndrome of inappropriate antidiuretic hormone secretion. In this context, psychotropic therapy could certainly in a major way predispose to syndrome of inappropriate antidiuretic hormone secretion, but I would also like to rule out the possibility of adrenal insufficiency with a random cortisol. In the immediate setting, I would support the ongoing measures of fluid restriction and routine sodium monitoring. 2. Hypothyroidism. The patient has chronic hypothyroidism and although she notes compliance with her intended regimen, I believe it is warranted to ensure that there have not been major changes in her thyroid hormone imbalance since it was last looked 6 weeks ago. I will do so by obtaining a TSH and free T4. This is a rather significant and relevant to her current issues of hyponatremia. Further dose adjustments will be made as necessary based on these results. 3. Clostridium difficile colitis. The patient seems to have ongoing issues with Clostridium difficile colitis. She is on contact precautions and is being managed with p.o. vancomycin. 4. Bipolar disorder, schizophrenia. As noted above, it appears that the patient's hyponatremia relates to her chronic therapy with Lamictal. This might very well need to be revised so as to avoid similar occurrences in the future. I would very much advice that her managing psychiatrist manages this therapeutic change to where her psych issues remain under good control while he avoids hyponatremia in the future. I have reviewed pertinent clinical care notes, laboratory data, radiologic data past and present for over 35 minutes. I certainly appreciate this consultation by Dr. Jacob. <ELECTRONICALLY SIGNED> By: Katiuska Casey MD 04/16/19 1251 [id number] Katiuska Casey MD /nt
[2019-04-16 17:41] VITALS: BP 142/70
[2019-04-16 21:06] VITALS: BP 128/69
[2019-04-17 06:39] LABS: ALBUMIN 2.8 g/dL (3.4-5.0); CALCIUM 8.6 mg/dL (8.5-10.1); CREATININE 0.6 mg/dL (0.6-1.0); MAGNESIUM 1.5 mg/dL (1.8-2.4); PHOSPHORUS 3.6 mg/dL (2.5-4.9); POTASSIUM 3.6 mmol/L (3.5-5.1)
[2019-04-17 07:30] VITALS: BP 145/62
[2019-04-17 14:00] VITALS: BP 140/69
[2019-04-17 19:51] VITALS: BP 122/55
[2019-04-18 07:41] LABS: CALCIUM 8.9 mg/dL (8.5-10.1); CREATININE 0.6 mg/dL (0.6-1.0); MAGNESIUM 1.5 mg/dL (1.8-2.4); POTASSIUM 3.5 mmol/L (3.5-5.1)
[2019-04-18 08:00] VITALS: BP 128/60
[2019-04-18 15:00] VITALS: BP 123/69
[2019-04-18 19:39] VITALS: BP 121/63
[2019-04-19 06:05] LABS: CALCIUM 8.6 mg/dL (8.5-10.1); CREATININE 0.7 mg/dL (0.6-1.0); MAGNESIUM 1.6 mg/dL (1.8-2.4); POTASSIUM 3.3 mmol/L (3.5-5.1)
[2019-04-19 08:03] VITALS: BP 150/77
[2019-04-19 14:31] VITALS: BP 129/54
[2019-04-19 18:59] VITALS: BP 156/89
[2019-04-20 05:22] LABS: CREATININE 0.7 mg/dL (0.6-1.0); POTASSIUM 3.6 mmol/L (3.5-5.1)
[2019-04-20 08:00] VITALS: BP 125/75
[2019-04-20 15:00] VITALS: BP 140/61
[2019-04-20 19:04] VITALS: BP 146/72
[2019-04-21 07:10] VITALS: BP 154/72
[2019-04-21] MEDS ORDERED: FLORINEF ACETA0.1 MG PO (14:08)
[2019-04-21] MEDS ORDERED: LAMOTRIGINE150 MG PO (14:08)
[2019-04-21] MEDS ORDERED: FIRVANQ50 MG/1 ML PO (14:10)
[2019-04-21 15:40] VITALS: BP 149/69
== END 2019-04-21 18:20 | disposition short-term general hospital (02) | DRG 643 ==
LOC: 3W 14:15 → 4W 04-16 19:56
PROVIDERS: Nurse Practitioner; Nurse Practitioner Acute Care; ADMIT Hospitalist
PROC: 02HV33Z Insertion of Infusion Device into Superior Vena Cava, Percutaneous Approach (ICD-10-PCS; principal; 2019-04-13)
DX: E22.2 Syndrome of inappropriate secretion of antidiuretic hormone (principal); G93.41 Metabolic encephalopathy; A04.72 Enterocolitis due to Clostridium difficile, not specified as recurrent; F31.9 Bipolar disorder, unspecified; E03.9 Hypothyroidism, unspecified; Z96.641 Presence of right artificial hip joint; Z96.611 Presence of right artificial shoulder joint; R41.0 Disorientation, unspecified; F25.9 Schizoaffective disorder, unspecified; Z79.899 Other long term (current) drug therapy; Z88.8 Allergy status to other drugs, medicaments and biological substances; Z90.49 Acquired absence of other specified parts of digestive tract
CPT/HCPCS: 10047; 10879; 27000

== ENCOUNTER 2019-04-21 19:00 | Inpatient (IN) | payer OTHER ==
[~2019-04-21 19:00] MED LIST changes: +FIRVANQ50 MG/1 ML PO; +FLORINEF ACETA0.1 MG PO; +LAMOTRIGINE150 MG PO
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
[2019-04-22 09:23] VITALS: BP 143/69
--- NOTE | 2019-04-22 12:55 | NUR ---
ASSUMED CARE AT 0715 AM ON04/22/19. PATIENT LYING IN BED AT 0750. PATIENT CLEANED UP DUE TO WATER STOOL NOTED IN BED. DISTINCTIVE ODER NOTED TO STOOL WILL NOTIFY DR. KAUFMAN IN W/C IN ROOM, CALM & COOPERATIVE. PATIENT TOOK MEDS WITHOUT DIFFICULTY. DENIES SI/HI AND AVH. DENIES NEEDS AT THIS TIME
[2019-04-22 20:21] VITALS: BP 101/52
--- NOTE | 2019-04-22 23:25 | NUR ---
ASSUMED CARE ON 04/22/19 @ 19:15, IN ROOM, IN BED. AWAKE AND ORIENTED TO PERSON, CAN REPORT FULL NAME AND , WELL PREFERRED NICKNAME IS BUCK. HER ANSWER TO WHO IS THE PRESIDENT IS NO RESPONSE. WHEN ASKED WHO HER FAVORITE PRESIDENT WAS, SHE ANSWERED LENIN, THEN PAUSED AND SAID THE BEATLE, BEE GEES AND ANCA. SHE CONTINUED IN UNCLEAR SPEACH TALKING ABOUT A CAT. NEW MED ORDERS FOR B-12 1000 MCG X 3 WEEKS THEN CONTINUE MONTHLY. TOOK MEDS WHOLE WITH WATER. C/O RIGHT SHOULDER PAIN, TYLENOL 650 GIVEN PRN, NOTED TO BE SLEEPING UPON REASSESSMENT. TOILETED, VOIDED NOEL COLOR URINE, NO BM OUTPUT NOTED. TOOK VANCOMYCIN ORDERED. BED IN LOW POSIITON, BED ALARM SET, WILL CONTINUE TO MONITOR Q 12 MINUTES FOR PATIENT SAFETY.
[2019-04-23 02:52] VITALS: BP 101/52
--- NOTE | 2019-04-23 06:30 | NUR ---
slept 8.6 hours overnight
[2019-04-23 09:19] VITALS: BP 149/62
--- NOTE | 2019-04-23 11:09 | NUR ---
Nutrition: Pt admitted back to [facility] unit from acute with major severe cognitive disorder, dementia. PMH: bipolar, schizophrenia. Intermittently confused and hallucinating during visit. Son present. Prior need for fluid restriction-SIADH. Prior food preferences will be re-entered. Dysphagia has improved from previous need for pureed with nectar thickened liquids, now on mechanical chopped regular liquids. Appetite has been good and current intake documented as 50-75% of meals. Current weight 121#, possible 8# decline from weight of 129# 2 weeks ago which is close to usual. May be related to hyponatremia/fluid restriction. RD will follow trends closely. Pt would like ensure enlive daily and ensure pudding. Will allow 1 liquid/tray as per previous order. Continue as low nutrition risk for now.
--- NOTE | 2019-04-23 11:17 | NUR ---
ASSUMED CARE AT 0700 THIS MORNING. PT. IN HER ROOM. DURING REPORT THE PUMP TECHNICIAN REPORTED PT. RETURNED FROM THE MEDICAL FLOOR AFTER HAVING C-DIF. PT. ATE BREAKFAST IN HER ROOM DUE TO THIS. HAND HYGIENE FOLLOWED CLOSELY. AT 0930 PT. CARE MEEETING, IT WAS DISCUSSED WITH THE AND ALL STAFF. STATED HE WOULD CHECK INTO THIS AND LET US KNOW. PT. CRIED WHEN MEDICATIONS WAS GIVEN TO HER (CRUSHED AND IN ICE CREAM), HOWEVER, SHE TOOK THE MEDICATIONS WITHOUT PROBLEMS NOTED. THEN STARTED EATING BREAKFAST AND STARTED SMILING AGAIN.
[2019-04-23 14:42] LABS: ABSOLUTE NEUTROPHILS 3.6 thou/uL (1.4-8.2); BASOPHILS 0.2 % (0.0-2.0); EOSINOPHILS 0.2 % (0.0-3.0); HEMATOCRIT 30.5 % (37.0-47.0); LYMPHOCYTES 23.1 % (24.0-44.0); MCH 27.7 pg (26.0-34.0); MCHC 32.7 g/dL (28.0-37.0); MCV 84.7 fL (80.0-100.0); PLATELET COUNT 336 thou/uL (150-400); POLYS 71.5 % (36.0-66.0); RDW 13.9 % (10.5-14.5); WBC 5.1 thou/uL (4.0-11.0)
[2019-04-23 14:56] LABS: CALCIUM 9.5 mg/dL (8.5-10.1); POTASSIUM 3.8 mmol/L (3.5-5.1)
[2019-04-23 15:12] VITALS: BP 149/62
[2019-04-23 15:26] VITALS: BP 149/62
[2019-04-23 19:47] VITALS: BP 106/57
--- NOTE | 2019-04-24 03:07 | NUR ---
ASSUMED CARE ON 04/23/19 @ 19:15, SITTING IN W/C IN DAY ROOM. INTERACTING OCCASIONALLY WITH PEERS. WEARING DISPOSABLE GOWN OVER HOSPITAL GOWN. TOOK MEDS WHOLE WITH WATER. COOPERATED WITH ASSESSMENT, PLEASANT AFFECT NOTED, ALERT, ORIENTED X3 TO PERSON AND CURRENT DATE/, PRESIDENT. RETIRED TO BED AND HAS SLEPT WELL, UP TO CURRENT WRITING. CDIFF PRECAUTIONS, GOWN, AND GLOVES, WASH HANDS WITH SOAP AND WATER AFTER CARE OBSERVED.
[2019-04-24 03:13] VITALS: BP 106/57
--- NOTE | 2019-04-24 08:33 | NUR ---
RENO called and spoke with pt's brother and he stated that the CM on the medical side had started a referral to [facility] and #2 is [place]. Per CM notes Level II has been completed. RENO will f/u with Abigail [phone] and sent updates.
[2019-04-24 09:32] VITALS: BP 114/45
--- NOTE | 2019-04-24 09:43 | NUR ---
0645 Report received from overnight shift, patient is in isolation for c-diff. I got patient up hygeine done, patient ate breakfast and took medication without incidence. Patient was talking out loud saying stop it and get away from me. Patient can be in day room because she has had vancomycin and has a couple more doses left. Hand hygiene is critical to keep others from possibly catching c-Diff. Patient cooperative, calm will continue to monitor patient for behavior problems.
--- NOTE | 2019-04-24 11:31 | NUR ---
KELLIE met with pt's son and provided him with another small list for placement choicecs. Kellie also called Abigail again for a f/u, left another VM. He stated that he was frustrated that he had a new SW and was " starting over ". KELLIE reassured him that I was capable of finding a SNF for her and there would be a continuum of care provided for his sister. KELLIE suggested another family meeting but he declined stating " i just want to focus on getting ehr out of here". He was disappointed that she was back on this geru psych and wanted her placed in a different ne psych. But was wiling to cooperate. He reported that she has made a very drastic decline and was not happy that she might need LTC. Kellie attempted to provide guidance, and empathetic listening.
--- NOTE | 2019-04-24 13:11 | NUR ---
Kellie called and reported this to family: Pt was denied at [facility]. Kellie sent referral to [facility] per family request.
[2019-04-24 15:07] VITALS: BP 114/45
--- NOTE | 2019-04-24 15:27 | NUR ---
Dr. Chang ordered a stool sample to test for c-diff.
--- NOTE | 2019-04-24 19:44 | NUR ---
PT C/O NAUSEA, ZOFRAN GIVEN PRN ORDERED.
[2019-04-24 19:51] VITALS: BP 93/49
--- NOTE | 2019-04-25 03:37 | NUR ---
ASSUMED CARE OF PATIENT ON 04/24/19 AT APPROXIMATELY 1915. THIS NURSE DONNED PPE AND ENTERED ROOM TO CONDUCT ONE TO ONE WITH PATIENT. SHE APPEARS WITH A FLAT, CONFUSED AFFECT. HER SPEECH WAS NON SENSICAL, THOUGH RYTHMN AND SPEED WERE CONGRUENT. IT WAS DIFFICULT TO ASSESS THIS PATIENT SHE KEPT REPEATING 'RIGHT OR LEFT.' SHE DID NOT DIVULGE SI HI, SHOWED NO AGGRESSIVE MOVEMENTS. SHE DID NEED 1X ASSIST BY STAFF TO USE VOID. SHE DID HOWEVER, WALK AD DAVID SEVERAL TIMES TO VOID/DEFECATE. SHE DID NOT APPEAR TO BE IN MEDICAL DISTRESS. MEDICATIONS GIVEN ORDERED WITH NO ISSUES. NURSING WILL MAINTAIN ALL PRECAUTIONS TO ENSURE SAFETY AT ALL TIMES.
--- NOTE | 2019-04-25 07:40 | NUR ---
04-24-19 1630 Kellie spoke with pt 's brother while he was visiting and he asked about taking her home and increasing the level of care. He also asked for HH to be ordered with [facility]. SW reported that this will be discussed in the treatment team meeting in the morning. If this is viable then pt will d/c to home on Tuesday04/27/19.
[2019-04-25 08:50] VITALS: BP 113/54
--- NOTE | 2019-04-25 12:16 | NUR ---
Kellie spoke with pt's brother while he visited on the unit. Pt will need a front roller walker per PT, this was ordered with [facility] at [facility]. Delivery is expected later today. Kellie also got orders and called [facility]. Then set orders with the referral packet. Orders included pt/ot/medical and psych nursing and SW. KELLIE also spoke with [facility] regarding ADL cares and they describe this pt as independent with meals, and toileting. She is SBA to 1 person assist with some ADLs and verbal cues with others. Kellie reported this to pt;s brother and stated that this was close to prior baseline. He is working on getting more help with [facility] in [place] and another palliative care physician to assist in the home.
[2019-04-25 12:23] VITALS: BP 113/54
--- NOTE | 2019-04-25 12:42 | NUR ---
I spoke with Geovanna's family about discharge care for Geovanna pertaining to her infection. We spoke of proper hand hygiene and making sure clothes and linens are laundry. She thanked me for the information that I gave her.
[2019-04-25 13:33] VITALS: BP 113/54
[2019-04-25] MEDS ORDERED: VANCOCIN 250 M250 M1 PO (15:00)
[2019-04-25] MEDS ORDERED: LAMOTRIGINE150 MG PO (15:01)
[2019-04-25] MEDS ORDERED: MAGOX 400400 MG PO (15:02)
[2019-04-25] MEDS ORDERED: ACIDOPHILUS1 EAC4 PO (15:03)
[2019-04-25] MEDS ORDERED: FLORINEF ACETA0.1 MG PO (15:03)
[2019-04-25] MEDS ORDERED: LEVOTHYROXINE88 MCG PO (15:03)
[2019-04-25] MEDS ORDERED: HOME MEDICATION PO ×2 (15:04)
[2019-04-25 15:16] VITALS: BP 113/54
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
--- NOTE | 2019-04-25 17:07 | NUR ---
DISCHARGE INSTRUCTIONS REVIEWED WITH BROTHER GABRIEL WHO IS DPOA AND GINO -RX MEDICATIONS INCLUDING DOSES,TIMES AND ROLLOW UP APPTS AND RECOMMENDATIONS REVIWED. C-DIFF CONTACT PRECAUTIONS REVIWED AND HANDOUTS PROVIDED TO FAMILY PER THEIR REQUEST. HOME HEALTH REFERAL FAXED PER SW. PT ESCORTED OFF UNIT VIA WC AND HOSPITAL STAFF TO SONS CAR. COOPERATIVE AND PLEASANT AT TIME OF DC
--- NOTE | 2019-04-28 12:45 | D ---
[facility] [place] [address] DISCHARGE SUMMARY Name: QUITA BROWN Room #: 517-A [facility] ..#: [id number] Admission: 04/21/19 Attend Phys: Elmer Chang DO Discharge: 04/25/19 Date of : 45 Report #: [id number] THIS REPORT FOR: //name// CC: Elmer Chang Lurdes Riceana rosa DATE OF SERVICE: 04/25/2019 PSYCHIATRIC DISCHARGE SUMMARY ATTENDING PHYSICIAN: Elmer Chang DO. DATE NIGHT SITTER THIS ADMISSION: Dr. Solorzano. DISCHARGE DIAGNOSES: Includes two major neurocognitive disorder, schizophrenia, curetn and by history. 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 The patient is on 6 more days of vancomycin oral. DIET: Mechanical soft. DISCHARGE PLAN: She is discharging to her brother, Ranjit's home. The patient requires 24-hour assistance and supervision. DISCHARGE MEDICATIONS: The patient's medications are vancomycin full view of 250 mg capsule 4 times a day for 6 more days, Rx given lamotrigine 150 mg p.o. at bedtime for mood stabilization, magnesium oxide 400 mg p.o. b.i.d., lactobacillus acidophilus 1 cap p.o. daily, fludrocortisone acetate 0.1 mg p.o. daily and that is for the hyponatremia. Lactobacillus probiotic, magnesium is for supplementation for 2 weeks, levothyroxine sodium 88 mcg p.o. daily. The patient also is getting thioridazine, which was a home medication, brought in. She had been on prior her dosing of it was 50 mg p.o. at noon and 100 mg p.o. at bedtime thioridazine. REASON FOR ADMISSION: A 73-year-old female readmitted from the Medical Unit where she had been sent down for critical hyponatremia and Clostridium difficile colitis. She has continued to have confusion, disorganization and erratic behavior. HOSPITAL COURSE: The patient was admitted to the Geriatric Psychiatry Unit. Essentially, this admission we tried to get her thought process and content cleared up. We were somewhat unsuccessful on this. The patient's brother and DPOA was upset about the limitations of the unit as well as the patient's dealing with Clostridium difficile was expecting the patient to be discharged to [facility] [address] [place] [address] DISCHARGE SUMMARY Name: QUITA BROWN Precious Room #: 517-A [facility]#: [id number] Admission: 04/21/19 Attend Phys: Elmer Chang DO Discharge: 04/25/19 Date of : 45 Report #: [id number] alf facility. For reasons I am not completely clear the hospitalist last week and Dr. Jacob wanted the patient to come back to [facility]. In any event, the patient on day of discharge was much happier than the previous day. Denied SI, HI. PHYSICAL EXAMINATION: VITAL SIGNS: Temperature 36.3, pulse 78, respirations 16, BP 113/54. MUSCULOSKELETAL: Using a wheelchair. The patient does have the ability to walk using a walker, home health orders were given by the way for PT, OT medical, psychiatric nursing and social work. Attention limited. Concentration limited. Speech is normal rate. Thought process, very limited. Thought content disorganized. Mood congruent and euthymic. Denied SI or HI. Denied auditory, visual, or tactile hallucinations. Insight and judgment impaired. Memory impaired. Fund of knowledge below average. PROGNOSIS: For this patient for guarded. It is recommended that the patient has a long-term care placement. <ELECTRONICALLY SIGNED> By: Elmer Chang DO 04/28/19 [id number] Elmer Chang DO /nt
== END 2019-04-25 16:00 | disposition home health service (06) | DRG 885 ==
LOC: SBH 19:00
PROVIDERS: ADMIT Psychiatry & Neurology Psychiatry
DX: F20.9 Schizophrenia, unspecified (principal); F01.50 Vascular dementia, unspecified severity, without behavioral disturbance, psychotic disturbance, mood disturbance, and anxiety; E22.2 Syndrome of inappropriate secretion of antidiuretic hormone; A04.72 Enterocolitis due to Clostridium difficile, not specified as recurrent; R41.0 Disorientation, unspecified; E03.9 Hypothyroidism, unspecified; Z88.8 Allergy status to other drugs, medicaments and biological substances; Z79.899 Other long term (current) drug therapy
CPT/HCPCS: 10880